=== PATIENT | male | born 1980 | race Caucasian/White ===

== ENCOUNTER 2021-11-09 01:02 | Outpatient (CLI) | payer MEDICAID, SELFPAY ==
[2021-11-09 10:55] LABS: Source Nasal/Nares
[2021-11-09 19:09] LABS: COVID-19 PCR Negative (Negative)
== END 2021-11-09 01:03 | disposition home or self-care (01) ==
LOC: LBO 01:02
PROVIDERS: PCP Nurse Practitioner Family; Visit Provider Urology
DX: Z20.822 Contact with and (suspected) exposure to COVID-19 (principal); Z01.818 Encounter for other preprocedural examination
CPT/HCPCS: 87635

== ENCOUNTER 2021-11-12 07:11 | Day surgery (SDC) | payer MEDICAID, SELFPAY ==
[2021-11-12] VITALS (8 sets, daily range): BP systolic 72–118; BP diastolic 36–88; PULSE 68–92; RESP 15–22; TEMP 36.4–36.8; O2SAT 95–98; BMI 34.7
--- NOTE | 2021-11-12 08:00 | W.PM.HP.N ---
Date of service: 11/12/21 Time of Service: 08:00 Assessment and Plan Assessment and plan (1) Phimosis of penis: Status: Acute Assessment and plan: He has failed conservative management. He will move forward with circumcision at this time. History of Present Illness History of Present Illness Chief Complaint: Phimosis Narrative: This is a 41-year-old gentleman who has a history of both phimosis and paraphimosis. He is currently unable to retract the foreskin at all. Previously, he had tried multiple topical treatments with no success. He has had multiple infectious processes. He presents now for circumcision. He has no known bleeding disorders. He has not had issues with anesthesia previously. Review of Systems Narrative: No fevers or chills No vision change or dysphasia Hx diabetes. No thyroid dysfunction No shortness of breath, cough or hemoptysis No chest pain or palpitations GERD when lies flat. Hx perirectal abcess. No nausea, vomiting, hepatitis, ulcers, jaundice, diarrhea or constipation No seizures, strokes or peripheral neuropathy No bleeding disorders or anemia Bilateral knee pain. No gout PFSH All Active Problems Phimosis of penis (Acute) Medical History Balanitis Borderline intellectual functioning Legally signs for himself Diabetes Exophthalmus Hiatal hernia Iron deficiency anemia Obesity Paronychia Perirectal abscess Pyogenic granuloma Tight foreskin Surgical History H/O endoscopy History of Darrian fundoplication S/P matrixectomy of toe Social History Smoking/Tobacco Use Status: Never Smoking risk assessment performed?: Yes Alcohol Intake: never Drug use: Never Substance use type: does not use Do you feel safe at home: Yes Do you feel safe in your relationship?: Yes Additional Social history: Mother answering questions for patient Meds Allergies and Home Medications Allergies Allergy/AdvReac Type Severity Reaction Status Date / Time dust Allergy Uncoded 11/12/21 07:39 eggs Allergy Uncoded 11/12/21 07:39 Home Medications Medication Instructions Recorded Confirmed Type ibuprofen 200 mg tablet 200 mg PO Q6H PRN 10/09/21 11/12/21 History acetaminophen 500 mg capsule 500 mg PO Q6H PRN 10/24/21 11/12/21 History clotrimazole 1 % topical cream 1 applic TOPICAL BID 10/24/21 11/12/21 History metformin 500 mg tablet 500 mg PO BID 10/24/21 11/12/21 History Exam Const General: cooperative and comfortable Neck Neck: supple Resp Effort & Inspection: normal respiratory effort Auscultation: clear to auscultation bilaterally Cardio Rate: regular rate Rhythm: regular rhythm GI Palpation: soft and no masses Neuro General: patient alert, patient awake and patient oriented x3 Results Last Vital Signs Temp 36.8 C 11/12/21 07:30 Pulse 91 H 11/12/21 07:30 Resp 16 11/12/21 07:30 BP 118/88 11/12/21 07:30 Pulse Ox 98 11/12/21 07:30
--- NOTE | 2021-11-12 08:06 | W.ANESPRE ---
General Info Date of Service Date Performed: 11/12/21 Height: 5 ft 6 in Weight: 97.7 kg Body Mass Index (BMI): 34.7 Surgical Procedure: Operation Date: 11/12/21 08:40 Proposed Procedures Side Surgeon p Circumcision Jose Guadalupe Medrano MD Meds Allergies and Home Medications Allergies Allergy/AdvReac Type Severity Reaction Status Date / Time dust Allergy Uncoded 11/12/21 07:39 eggs Allergy Uncoded 11/12/21 07:39 Home Medication Medication Instructions Recorded ibuprofen 200 mg tablet 200 mg PO Q6H PRN 10/09/21 acetaminophen 500 mg capsule 500 mg PO Q6H PRN 10/24/21 clotrimazole 1 % topical cream 1 applic TOPICAL BID 10/24/21 metformin 500 mg tablet 500 mg PO BID 10/24/21 Current Visit Medications: Current Medications Generic Name Dose Route Start Last Admin Trade Name Freq PRN Reason Stop Dose Admin Ringer's Solution 1,000 mls @ 80 mls/hr 11/12/21 06:00 IV 12/09/21 23:59 INFUSION GRAYSON Cefazolin Sodium/Dextrose 1 gm in 50 mls @ 100 mls/hr 11/12/21 06:00 Ancef Duplex IVPB 11/12/21 16:00 PREOP GRAYSON IV Miscellaneous Supplies 1 each 11/12/21 06:00 Iv Access IV 12/09/21 23:59 DIRECTED GRAYSON Sodium Chloride 0 ml 11/12/21 06:00 Normal Saline Flush 10 Ml Syr IV 12/09/21 23:59 PRN PRN Sodium Chloride 0 ml 11/12/21 06:00 Normal Saline 10 Ml Vial IJ 12/09/21 23:59 DIRECTED PRN Sterile Water 0 ml 11/12/21 06:00 Water,Injection,Sterile 10 Ml Vial IJ 12/09/21 23:59 DIRECTED PRN PFSH Active Problems Active Problems: Problem Status Onset Code Phimosis of penis N47.1 Medical History Medical History Balanitis Borderline intellectual functioning Legally signs for himself Diabetes Exophthalmus Hiatal hernia Iron deficiency anemia Obesity Paronychia Perirectal abscess Pyogenic granuloma Tight foreskin Surgical History Surgical History H/O endoscopy History of Darrian fundoplication S/P matrixectomy of toe Tobacco Smoking/Tobacco Use Status: Never Alcohol Alcohol Intake: never Substance Use Substance use: Never Substance use type: does not use Vital Signs and Lab Results Vital Signs Most Recent Vital Signs in EMR: Most Recent Vital Signs Temp Pulse Resp BP Pulse Ox 36.8 C 91 H 16 118/88 98 11/12/21 07:30 11/12/21 07:30 11/12/21 07:30 11/12/21 07:30 11/12/21 07:30 Lab Results Blood Type / Crossmatch: No Data to Display Complete Blood Count: No Data to Display Complete Metabolic Panel: No Data to Display Liver Function Panel: No Data to Display Coagulation Panel: No Data to Display Cardiac Panel: No Data to Display Arterial Blood Gas: No Data to Display Venous Blood Gas: No Data to Display Pancreas Panel: No Data to Display Thyroid Panel: No Data to Display Infectious Disease: Coronavirus (COVID-19)(PCR) Negative (Negative) 11/09/21 09:55 11/09/21 Coronavirus 2019 Source Nasal/Nares 11/09/21 09:55 11/09/21 Blood Cultures: No Data to Display Toxicology Panel: No Data to Display Anesthesia Assessment and Plan Anesthesia History Personal History: No History of Anesthesia Complications Family History: No Family History of Anesthesia Complications Exercise Tolerance Exercise Tolerance: Metabolic Equivalents>4 Pertinent Negatives Pertinent Negatives: Other (Active gerd when lying flat) Cardiac & Pulmonary Exam Cardiac Exam: Normal S1/S2 Heart Sounds Pulmonary Exam: Clear Bilateral Breath Sounds Implantable Cardiac Device Does patient have a Pacemaker or an ICD?: No Airway Exam Known Difficult Airway: No Mallampati Class: 2 Mouth Opening: Normal (> 3cm) Thyromental Distance: Greater than 3 cm Neck Range of Motion: Full ROM Neck Circumference: Normal Teeth Condition: Generalized Poor Dentition ASA Classification ASA Score: ASA 2 Emergency Case?: No NPO Status NPO Status: NPO Clears >2 hours, Solids >8 hours Anesthesia Plan Resuscitation Status: Full Code Anesthesia Technique: General Anesthesia Airway Planned: Endotracheal Tube Monitors Used: Standard Monitors
[2021-11-12] MEDS: Lactated Ringers 1,000 ML 80 ML IV (08:22)
[2021-11-12] MEDS: ceFAZolin 1 GM/50 ML BAG IVPB (08:46)
[2021-11-12] MEDS: Bupivacaine 0.5% Pres-Free 30 ML VIAL (09:31)
--- NOTE | 2021-11-12 09:34 | W.PM.DSUDISC ---
Discharge Plan Disposition Patient Disposition: HOME Condition: Stable Discharge Details Reason For Visit: circumcision Attending Provider: Jose Guadalupe Medrano Primary Care Provider: Lesley Maloney Home Meds and New Rx's Prescriptions: New lidocaine HCl 2 % jelly in applicator 1 applic topical QID PRN (Reason: pain) Qty: 10 RF: 5 No Action acetaminophen 500 mg capsule 500 mg PO Q6H PRNRF: 0 clotrimazole 1 % cream 1 applic topical BID RF: 0 metformin 500 mg tablet 500 mg PO BID RF: 0 ibuprofen 200 mg tablet 200 mg PO Q6H PRNRF: 0 Discharge Instructions Additional Instructions: may take shower or bath, get dressing wet and remove dressing in AM 12/14 - no need to replace dressing/bandage use xylocaine jelly to skin on head of penis as needed for sensitivity may use ibuprofen 800 mg every 6 hours and tylenol 650 mg every 4 hours as needed for pain followup in my office 1 to 2 weeks for wound check. Activity:: Activity as Tolerated Remove Dressings/Wound Care:: 24 hours Shower/Bathe:: 24 hours Diet:: As Tolerated Discharge Orders Discharge Orders: Discharge Order (Routine); Ordered 11/12/21 Ordered By: Jose Guadalupe Medrano DS: Diagnosis Discharge Diagnosis (1) Phimosis of penis: Status: Acute
--- NOTE | 2021-11-12 10:14 | W.ANESPOSTOP ---
Postoperative Evaluation Date, Time and Location Date Performed: 11/12/21 Time Performed: 10:15 Patient Location: PACU Vital Signs Most Recent Imported Vital Signs: Most Recent Vital Signs Temp Pulse Resp BP Pulse Ox 36.6 C 82 16 102/60 95 11/12/21 10:07 11/12/21 10:07 11/12/21 10:07 11/12/21 10:07 11/12/21 10:07 Pain Score Most Recent Pain Score: Most Recent Pain Score Pain Level 0 11/12/21 10:07 Assessment Mental Status: Arousable with meaningful communication Airway and Respiratory Function: Patent airway with normal (patient baseline) respiratory exam Cardiovascular Function: Hemodynamically Stable Hydration Status: Adequately Hydrated Nausea & Vomiting: No Nausea or Vomiting Pain: Pt. Denies Any Pain Peripheral Nerve Block: Patient did not receive a nerve block
--- NOTE | 2021-11-12 10:21 | W.PM.OP ---
Date of service: 11/12/21 Time of Service: 10:21 Operative Note Operative Note DATE OF PROCEDURE: 11/12/21 PRE-OP DIAGNOSIS: Phimosis POST-OP DIAGNOSIS: same PROCEDURE: Circumcision SURGEON: Jose Guadalupe Medrano ANESTHESIA TYPE: Local By Surgeon and General LMA/ETT Refer to Anesthesia Record ESTIMATED BLOOD LOSS: 25 PATHOLOGY: none sent COMPLICATIONS: None Patient was transported to: PACU Patient's condition: stable Implants: None Indications: This is a 41-year-old gentleman who has a history of phimosis and recurrent episodes of balanitis. He has failed topical treatments and presents now for circumcision Procedure Description: The patient was given preoperative IV antibiotics and brought to the operating room on 11/12/2021. After successful induction of general anesthesia, he was placed in the supine position. His genitalia was prepped and draped. A dorsal penile nerve block was performed using half percent Marcaine without epinephrine. A penile ring block was performed as well. We began by making a circumferential incision on the outer aspect of the foreskin at approximately the level of the coronal sulcus. A dorsal slit was then performed to expose the inner aspect of the foreskin. A second circumferential incision was made about 1 cm below the coronal sulcus. The 2 incisions were connected and the redundant foreskin was excised. No visible abnormalities were seen, so the skin was not sent to pathology for permanent section. The skin edges were then cauterized using a hand-held Bovie in order to achieve hemostasis. The skin edges were reapproximated using simple interrupted 4-0 chromic sutures. A thin dressing was then applied to the suture line. The patient tolerated this procedure well with no complications. He was taken to the recovery room in stable condition.
== END 2021-11-12 11:53 | disposition home or self-care (01) ==
PROVIDERS: PCP Nurse Practitioner Family; Visit Provider Urology
PROC: (CPT 54161; principal; 2021-11-12 08:30)
DX: N47.1 Phimosis (principal); E11.9 Type 2 diabetes mellitus without complications; D50.9 Iron deficiency anemia, unspecified
CPT/HCPCS: 54161; J0690; J1100; J1885; J2250; J2405